=== PATIENT | male | born 1975 | race Caucasian/White ===

== ENCOUNTER 2019-08-14 08:01 | Outpatient (CLI) | payer BC, SELFPAY ==
--- NOTE | 2019-08-20 02:31 | SLEEP_ITS ---
BiPAP Titration. DATE OF STUDY: 08/14/2019 ORDERING PHYSICIAN: Adina Shields MD., aircraft engine assembler. REASON FOR THIS STUDY: Obstructive sleep apnea syndrome on CPAP, elevated AHI. HISTORY: This patient is a 43-year-old male, 74 inches tall, weighing 253 pounds with a body mass index of 32.5. He was seen on 07/03/2019 for evaluation of severe obstructive sleep apnea syndrome diagnosed in November of 2018 with a SNAP sleep test with loud snoring, hypoxemia to 73% and an apnea-hypopnea index of 38.4. He was started on an auto PAP with pressures between 5 cm and 20 cm of water. Normal bedtime is around 9:30 p.m., falls asleep within minutes, wakes up a few times at night. Wakes for the day at 4:30 a.m. on work days and 7 a.m. on the weekends and he does not feel refreshed. He has occasional headaches and a dry mouth on awakening. He has daytime fatigue. He was compliant with his device using at 88% of the days for greater than 4 hours with a residual apnea-hypopnea index of 8.3. He did recently have an episode of atrial fibrillation. He does smoke cigarettes. He is sent at this time for a BiPAP titration. MEDICAL COMORBIDITIES: Atrial fibrillation. MEDICATIONS: 1. Eliquis b.i.d. for atrial fib. 2. Diltiazem 1 daily. 3. Metoprolol 1 daily. HABITS: Tobacco, daily usage. He has 1 caffeinated beverage a day. No alcohol. DESCRIPTION OF THE STUDY: On the [place] Sleepiness Scale, the score is 3. This was conducted as a full night BiPAP titration using the [employer] multiple channel system including EOG, EEG, submental EMG, nasal and oral airflow using thermistors and nasal pressure sensors, chest and abdominal belts, body position data and pulse oximetry. The study was scored using CMS guidelines. The duration was 515.1 minutes. Sleep time was 380.5 minutes. Sleep efficiency was 73.9%. Sleep latency was 24.4 minutes. REM latency was short at 74.5 minutes. He spent 22.5% of the study awake after sleep onset. Sleep architecture showed 8.9% stage I sleep, 55.5% stage II sleep, no stage III sleep, and 13.1% stage REM. He spent 47% of the study supine. Sleep architecture showed fragmentation with significant shifts between wakefulness, stage I, and stage II. He had 5 REM cycles that were somewhat fragmented with shifts back to wakefulness. The apnea-hypopnea index was 2.2, mainly obstructive events. He had 3 obstructive hypopneas in supine REM for an index of 4.7. He had 1 obstructive hypopnea in non-supine REM for an index of 2.3. He had 1 mixed apnea in supine non-REM and 8 obstructive hypopneas in supine non-REM for an index of 2.8. He had 1 obstructive hypopnea in non-supine non-REM for an index of 0.5. The supine index was 3.1, non-supine index was 0.8. Lowest desaturation 90%. He had 15 desaturations of 4% or greater for an index of 1.7. No time was spent below 88%. Mean saturation was 95%. AROUSALS: One hundred nineteen arousals for an index of 13.9. There was 1 apnea for an index of 0.1, 2 hypopneas for an index of 0.2, 108 spontaneous for an index of 12.6, and 8 limb movements for an index of 0.9. LIMB MOVEMENTS: Fourteen limb movements for an index of 2.2. EKG: Sinus bradycardia, mean heart rate 49. No arrhythmia. During this titration, the patient brought his old mask from home, but shows used a [employer] medium FX nasal pillow during the study. He could not lie supine mainly due to back pain, but he did move into the supine position on his own during the night. During the study, I did not see any atrial fibrillation. BiPAP was started at 8/4 and gradually increased to 13/9. At 13/9, he had 38 minutes in bed, 8 minutes of REM, 25 minutes of non-REM, and 1 hypopnea. The apnea-hypopnea index was 1.8 at this setting with
== END 2019-08-14 08:02 | disposition home or self-care (01) ==
LOC: ANHCSM 08:02
PROVIDERS: PCP Internal Medicine; Visit Provider Internal Medicine Pulmonary Disease
DX: G47.33 Obstructive sleep apnea (adult) (pediatric) (principal)
CPT/HCPCS: 95811

== ENCOUNTER 2020-05-04 01:34 | Outpatient (CLI) | payer BC, SELFPAY ==
[2020-05-04 18:17] LABS: SARS-CoV-2 RNA PCR Negative
== END 2020-05-04 01:35 | disposition home or self-care (01) ==
LOC: ANHCOVIDDT 01:34
PROVIDERS: PCP Internal Medicine; Visit Provider Internal Medicine Critical Care Medicine
DX: Z01.812 Encounter for preprocedural laboratory examination (principal); Z20.828 Contact with and (suspected) exposure to other viral communicable diseases
CPT/HCPCS: 87635; C9803; U0003

== ENCOUNTER 2020-05-06 08:31 | Outpatient (CLI) | payer BC, SELFPAY ==
--- NOTE | 2020-05-30 21:34 | WPDSLEEPSTUD ---
Sleep Study Date of Study: 05/06/20 Ordering Provider: Juan Hamilton APRN Interpreting Physician: Bella Holloway MD Sleep Study Type: BiPAP Titration Height: 1.88 m Weight: 119.295 kg Body Mass Index: 33.7 Neck Circumference: 45.72 cm [place]: 1 Reason for Sleep Study Severe obstructive sleep apnea, poor response to treatment on BiPAP, increasing number of central apneas; needs repeat titration * Bipap titration 08/14/2019 : optimal pressure 13/9; good compliance with increased number of centrals on download * [facility] Oximetry 11/10/2018: Loud snoring, lowest saturation 73%; 12 min spent below 88%, mean heart rate 51. AHI was 38.4 by report however I do not see that number documented on the report. This was recorded in an office visit in our office. BMI was lower 29.9 on this date. Sleep History Roma Blandon is a 44 year-old male with obstructive sleep apnea who has been on BiPAP. His last sleep study was November 2018 with an AHI of 38.4 and desaturation to 73%. He was on Auto Pap but failed to respond to therapy. He had a BiPAP titration in August of 2019. He continued to have yawning throughout the day. He has atrial fibrillation. Normal bedtime is around 9:30 p.m., falls asleep within minutes, wakes up a few times at night. Wakes for the day at 4:30 a.m. on work days and 7 a.m. on the weekends and he does not feel refreshed. He has occasional headaches and a dry mouth on awakening. He has daytime fatigue. He was compliant with his device using at 88% of the days for greater than 4 hours with a residual apnea-hypopnea index of 8.3. HABITS: Tobacco, daily usage. He has 1 caffeinated beverage a day. No alcohol. PMFSH Past Medical History Medical History Afib Obstructive apnea Social History Social History Smoking status: Former smoker Substance use type: does not use Medications Home Medications Medication Instructions Recorded Confirmed Type apixaban 5 mg tablet 5 mg PO BID 07/03/19 11/25/19 History metoprolol succinate 200 mg 200 mg PO DAILY 07/03/19 11/25/19 History tablet,extended release 24 hr Sleep Procedure This test was performed using the [employer] multiple channel system including EOG, EEG, submental EMG, EKG, nasal and oral airflow using thermistors and nasal pressure sensors, chest and abdominal belts for body position data, and pulse oximetry. Video monitoring was also performed. The study was scored using [facility] guidelines. The patient was started on BiPAP using a large AirFit P10 nasal pillow and a pressure of 8/4. The pressure was increased for snores and respiratory effort related arousals. When the pressure reached, 12/8, the patient began having more central apneas. The tech decreased the pressure to 12/7 to see if this would cause the central apneas to [place]. At 12/7, he appeared to have an acceptable AHI. Attempts were made to increase the pressure again without success. Sleep Architecture The recording time was 474.9 minutes. The sleep time was 427.4 minutes. The sleep efficiency was 90%. The sleep latency was 12.4 minutes. The REM latency was 68.5 minutes. There were 37 awakenings and the patient spent 7.6% of the study, 35 minutes awake after sleep onset. Sleep architecture showed 8.1% stage 1 sleep, 65.5% stage 2 sleep, 18.8% stage REM. There was no stage 3 sleep. The patient spent 45.7% of the study in the supine position. He had 4 REM cycles. Sleep was moderately fragmented with shifts between wake, stage I, stage II, and REM. Respiratory Analysis The [facility] apnea-hypopnea index is 6.9. The obstructive index is 1.8 and the central index is 5.1. In supine REM the patient had 1 central apnea for an index of 1.3. In nonsupine REM he had 1 central apnea and 2 obstructive hypopneas for an index of 4.6. In supine non-REM he had 1 obstructive apnea, 27 central ap
[2020-06-06 11:16] VITALS: BMI 33.7
== END 2020-05-06 08:32 | disposition home or self-care (01) ==
LOC: ANHCSM 08:32
PROVIDERS: PCP Internal Medicine; Visit Provider Nurse Practitioner Family
DX: G47.39 Other sleep apnea (principal)
CPT/HCPCS: 95811

== ENCOUNTER 2020-07-26 15:11 | Outpatient (CLI) | payer BC, SELFPAY ==
--- NOTE | 2020-07-26 15:14 | ECHO_ITS ---
Patient Info Name: Roma Blandon Age: 44 years : 1975 Gender: Male Ht: 74 in Wt: 253 lbs BSA: 2.48 m2 HR: 55 bpm BP: 147 / 82 mmHg Heart Rhythm: Bradycardia Technical Quality: Good Exam Date: 07/26/2020 3:37 PM Exam Location: [facility] Patient Status: Outpatient Admit Date: 07/26/2020 Staff Ordering Physician: Bella Holloway MD Sample Maker: Julian Munoz RDCS Attending Provider: Juan Hamilton APRN Referring Physician: Jewel DUNCAN; Exam Type: CA echo doppler color flow Study Info Indications R06.02 - Shortness of breath Complete two-dimensional, color flow and Doppler transthoracic echocardiogram is performed. Strain analysis performed. History/Risk Factors Shortness of breath, paroxysmal atrial fibrillation. Summary 1. Complete two-dimensional, color flow and Doppler transthoracic echocardiogram is performed. 2. Left ventricular chamber dimension is moderately enlarged. 3. Left ventricular systolic function is normal, estimated at 50-55%. 4. The left ventricular diastolic function is normal. 5. E/e' 8 is minimally elevated. 6. Global longitudinal strain is mildly abnormal at -16.2%. 7. Right ventricular chamber dimension is moderately enlarged. 8. No pulmonary hypertension, estimated pulmonary arterial systolic pressure is 31 mmHg. 9. Normal inferior vena cava with <50% collapse upon inspiration consistent with elevated right atrial pressure, 10 mmHg. Left Ventricle E/e' 8 is minimally elevated. Global longitudinal strain is mildly abnormal at -16.2%. Left ventricular chamber dimension is moderately enlarged. Left ventricular systolic function is normal, estimated at 50-55%. The left ventricular diastolic function is normal. Right Ventricle Right ventricular endocardium is not well seen to assess RV function by visual estimation. Right ventricular systolic function is normal based on TAPSE 2.5 cm. Right ventricular chamber dimension is moderately enlarged. Left Atria Left atrial chamber dimension is normal. Right Atria Right atrial chamber dimension is normal. Aortic Valve The aortic valve is trileaflet. There is no aortic valve stenosis. There is no aortic valve regurgitation. Pulmonic Valve There is no pulmonic regurgitation. Mitral Valve There is no mitral valve stenosis. There is no mitral valve regurgitation. Tricuspid Valve There is no tricuspid valve regurgitation. No pulmonary hypertension, estimated pulmonary arterial systolic pressure is 31 mmHg. Pericardium/Pleural There is no pericardial effusion. Inferior Vena Cava Normal inferior vena cava with <50% collapse upon inspiration consistent with elevated right atrial pressure, 10 mmHg. Aorta The aortic root size at the sinus of Valsalva is normal. Left Ventricular Outflow Tract Name Value Normal LVOT 2D LVOT Diameter 2.3 cm LVOT Doppler LVOT Peak Gradient 5 mmHg LVOT Mean Gradient 2 mmHg LVOT VTI 23 cm LVOT VTI/AV VTI Ratio 0.9 LVOT
== END 2020-07-26 15:12 | disposition home or self-care (01) ==
LOC: ANHCARD 15:13
PROVIDERS: PCP Internal Medicine; Visit Provider Nurse Practitioner Family
DX: G47.39 Other sleep apnea (principal); I48.91 Unspecified atrial fibrillation; R06.02 Shortness of breath
CPT/HCPCS: 93306

== ENCOUNTER → 2020-12-13 02:48 | Outpatient (CLI) | payer BC, SELFPAY ==
[2020-12-13 23:32] LABS: SARS-CoV-2 RNA PCR Negative
== END ==
PROVIDERS: PCP Internal Medicine; Visit Provider Internal Medicine Critical Care Medicine
DX: R68.89 Other general symptoms and signs (principal); Z20.822 Contact with and (suspected) exposure to COVID-19
CPT/HCPCS: C9803; U0003; U0005

== ENCOUNTER 2020-12-16 16:00 | Outpatient (CLI) | payer BC, SELFPAY ==
[2021-01-02 11:16] VITALS: BMI 32.1
--- NOTE | 2021-01-02 11:16 | WPDSLEEPSTUD ---
Sleep Study Date of Study: 12/16/20 Ordering Provider: Juan Hamilton APRN Interpreting Physician: Bella Holloway MD Sleep Study Type: ASV Height: 1.88 m Weight: 113.398 kg Body Mass Index: 32.1 Neck Circumference (inches): 17 [place]: 10 Reason for Sleep Study Severe obstructive sleep apnea with treatment emergent central apneas, poor response to treatment on BiPAP, increasing number of central apneas; needs ASV titration. * BiPAP re-titration 05/06/2020 treatment emergent central apneas; no optimal pressure. 12/7 was the best of the pressures attempted. * Bipap titration 08/14/2019 : optimal pressure 13/9; good compliance with increased number of centrals on download * [facility] Oximetry 11/10/2018: Loud snoring, lowest saturation 73%; 12 min spent below 88%, mean heart rate 51. AHI was 38.4 by report however I do not see that number documented on the report. This was recorded in an office visit in our office. BMI was lower 29.9 on this date Sleep History Roma Blandon is a 45 year-old male with obstructive sleep apnea who has been on BiPAP. His last sleep study was May 06, 2020 BiPAP titration with no optimal pressure. November 2018 with an AHI of 38.4 and desaturation to 73%. He was on Auto Pap but failed to respond to therapy. He had a BiPAP titration in August of 2019 and again May 06, 2020. He continued to have yawning throughout the day. He has atrial fibrillation. Normal bedtime is around 9:30 p.m., falls asleep within minutes, wakes up a few times at night. Wakes for the day at 4:30 a.m. on work days and 7 a.m. on the weekends and he does not feel refreshed. He has occasional headaches and a dry mouth on awakening. He has daytime fatigue. He was compliant with his device using at 88% of the days for greater than 4 hours with a residual apnea-hypopnea index of 8.3. HABITS: Tobacco, daily usage. He has 1 caffeinated beverage a day. No alcohol. [facility] Past Medical History Medical History (Updated 01/02/21 @ 11:27 by Bella Holloway MD) Afib Obstructive apnea Treatment-emergent central sleep apnea (~04/2020) Surgical History Surgical History H/O local excision of skin lesion excision of mid upper back mass and a mid lower back lesion. 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 Video monitoring was also performed. The study was scored using CMS guidelines. The patient was started on ASV using using of the rods she FX wide nasal mask and heated humidifier. The initial pressures were the standard EPAP 5 cm, minimum pressure support 3 cm and maximum pressure support 15 cm. The EPAP was increased for upper airway resistance events. EPAP was increased by 1 cm increments to a final pressure of 8 cm. At CPAP of 8, minimum pressure support 3 and maximum pressure support 15 the patient had REM and elimination of all events. THis is the optimal pressure. He spent 2 hours and 36 minutes in bed, 42 minutes in REM, 1 hour 26 minutes in non-REM. The A
== END 2020-12-17 07:20 | disposition home or self-care (01) ==
LOC: ANHCSM 12-19 10:18
PROVIDERS: PCP Internal Medicine; Visit Provider Nurse Practitioner Family
DX: G47.33 Obstructive sleep apnea (adult) (pediatric) (principal); G47.39 Other sleep apnea; I48.91 Unspecified atrial fibrillation; G47.10 Hypersomnia, unspecified
CPT/HCPCS: 95811

== ENCOUNTER 2021-11-11 08:01 | Outpatient (CLI) | payer BC, SELFPAY | END 2021-11-11 08:02 | disposition home or self-care (01) | LOC: ANHLAB 08:02 | PROVIDERS: PCP Internal Medicine; Visit Provider Nurse Practitioner Family | DX: R53.83 Other fatigue (principal) | CPT/HCPCS: 36415; 82728 ==